=== PATIENT | male | born 1985 | race African-American/Black ===

== ENCOUNTER 2017-08-05 10:59 | Emergency (ER) | payer MEDICAID ==
[~2017-08-05] VITALS: Ht 167.6 cm; Wt 79.0 kg
[2017-08-05 11:41] VITALS: BP 145/105
== END 2017-08-05 12:47 | disposition home or self-care (01) ==
LOC: ER 12:45
DX: H00.019 Hordeolum externum unspecified eye, unspecified eyelid (principal); J45.909 Unspecified asthma, uncomplicated
CPT/HCPCS: 99283

== ENCOUNTER 2021-05-13 09:19 | Emergency (ER) | payer MEDICAID ==
[~2021-05-13] VITALS: Ht 167.6 cm; Wt 69.0 kg
[2021-05-13 09:41] VITALS: BP 127/76
[2021-05-13] MEDS ORDERED: OFLO5DRO3 EACHEYE (09:49)
== END 2021-05-13 10:04 | disposition home or self-care (01) ==
LOC: ER 09:53
DX: H10.9 Unspecified conjunctivitis (principal); H00.015 Hordeolum externum left lower eyelid; J45.909 Unspecified asthma, uncomplicated
CPT/HCPCS: 99283

== ENCOUNTER 2021-06-10 14:56 | Emergency (ER) | payer MEDICAID ==
[~2021-06-10] VITALS: Ht 167.6 cm; Wt 78.0 kg
[~2021-06-10 14:56] MED LIST: OFLO5DRO3 EACHEYE
[2021-06-10 16:00] VITALS: BP 160/101
== END 2021-06-10 17:07 | disposition home or self-care (01) ==
LOC: ER 14:56
DX: J02.9 Acute pharyngitis, unspecified (principal); Z20.822 Contact with and (suspected) exposure to COVID-19; J45.909 Unspecified asthma, uncomplicated
CPT/HCPCS: 99283; C9803; U0003; U0005

== ENCOUNTER 2021-10-01 10:42 | Emergency (ER) | payer MEDICAID, OTHER ==
[~2021-10-01] VITALS: Ht 167.6 cm; Wt 77.0 kg
[2021-10-01] MEDS ORDERED: KETOROLAC 60MG/2ML VIAL IM ONE (11:15)
[2021-10-01] MEDS ORDERED: KETOROLAC 30MG/ML VIAL IM NR (13:30)
[2021-10-01 13:31] VITALS: BP 159/111
[2021-10-01] MEDS ORDERED: NAPR-681 MT (14:18)
== END 2021-10-01 14:32 | disposition home or self-care (01) ==
LOC: ER 10:42
DX: M54.50 Low back pain, unspecified (principal)
CPT/HCPCS: 72100; 96372; 99283; J1885

== ENCOUNTER 2022-04-17 14:02 | Emergency (ER) | payer OTHER ==
[~2022-04-17] VITALS: Ht 167.6 cm; Wt 82.0 kg
[~2022-04-17 14:02] MED LIST changes: +NAPR-681 MT
[2022-04-17 14:34] VITALS: BP 176/111
[2022-04-17] MEDS ORDERED: CARBAMIDE PEROXIDE 6.5% OTIC SOLN 15ML LEFT EAR ONE (17:45)
[2022-04-17] MEDS ORDERED: CARB15DR63 EACH EAR (17:54)
== END 2022-04-17 18:16 | disposition home or self-care (01) ==
LOC: ER 14:02
DX: H61.23 Impacted cerumen, bilateral (principal)
CPT/HCPCS: 99282